=== PATIENT | female | born 1935 | race Caucasian/White ===

== ENCOUNTER 2017-09-10 13:40 | Inpatient (IN) | payer MEDICARE ==
[~2017-09-10] VITALS: Ht 152.4 cm; Wt 71.5 kg
[~2017-09-10 13:40] MED LIST: BUPR1PAT TOP; CITA40TA22 PO; CLOP75TA35 PO; DICY10CA88 PO; DIVA250T8 PO; GABA-347 PO; LAMO25TA94 PO; LISI-604 PO; NORCO10T PO; PANT-47 PO; RISP0.5T74 PO; SIMV20TA5 PO; atropine 0.1mg/ml 10ml syringe ONE
[2017-09-10 14:17] LABS: PROTHROMBIN TIME 10.3 SECONDS (9.0-12.0)
[2017-09-10 14:20] LABS: BASOPHILS # (AUTO) 0.1 X10'3 (0-0.2); BASOPHILS % (AUTO) 0.9 % (0-1); EOSINOPHILS # (AUTO) 0.1 X10'3 (0-0.9); EOSINOPHILS % (AUTO) 0.6 % (0-6); HEMOGLOBIN 9.6 g/dl (12.0-16.0); LYMPHOCYTES # (AUTO) 2.4 X10'3 (1.1-4.8); LYMPHOCYTES % (AUTO) 23.4 % (21-51); MEAN CORPUSCULAR HGB CONC 31.1 % (33.0-36.5); MEAN CORPUSCULAR VOLUME 67.6 FL (78-98); MEAN PLATELET VOLUME 7.5 FL (7.4-10.4); MONOCYTES # (AUTO) 0.5 X10'3 (0-0.9); MONOCYTES % (AUTO) 5.4 % (2-12); NEUTROPHILS % (AUTO) 69.7 % (42-75); PLATELET COUNT 292 X10'3 (140-440); RED BLOOD COUNT 4.58 X10'6 (4.20-5.60); RED CELL DISTRIBUTION WIDTH 18.1 % (11.5-14.5); WHITE BLOOD COUNT 10.1 X10'3 (4.5-11.0)
[2017-09-10 14:22] LABS: ALANINE AMINOTRANSFERASE 13 U/L (12-78); ALBUMIN 3.2 G/DL (3.4-5.0); ALBUMIN/GLOBULIN RATIO 0.7 (1.1-1.5); ALKALINE PHOSPHATASE 87 IU/L (46-116); ANION GAP 8 (8-16); ASPARTATE AMINO TRANSFERASE 11 U/L (10-37); BILIRUBIN,TOTAL 0.2 MG/DL (0.1-1.0); BLOOD UREA NITROGEN 34 MG/DL (7-18); CALCIUM 8.3 MG/DL (8.5-10.1); CHLORIDE 103 MMOL/L (99-107); CREATININE 1.26 MG/DL (0.40-0.90); GLUCOSE 115 MG/DL (70-104); POTASSIUM 5.1 MMOL/L (3.5-5.1); SODIUM 134 MMOL/L (135-145); TOTAL CARBON DIOXIDE 22.7 MMOL/L (24-32); TOTAL PROTEIN 7.5 G/DL (6.4-8.2); eGFR 41 ML/MIN
[2017-09-10] MEDS ORDERED: normal saline 1000ml 1,000 ML IV ONE ×2 (14:30→14:50)
[2017-09-10] MEDS ORDERED: BUSP10TA11 PO (14:34)
[2017-09-10] MEDS ORDERED: DOCU100C33 PO (14:34)
[2017-09-10] MEDS ORDERED: VERA180T PO (14:34)
[2017-09-10] MEDS ORDERED: TRAZ-218 PO (14:34)
[2017-09-10] MEDS ORDERED: atropine 1 MG/1 ML vial IV ONE (14:50)
[2017-09-10] MEDS ORDERED: DOPamine 400mg/D5W 250ml 250 ML IV SCH ×2 (14:50→15:06)
[2017-09-10 15:06] LABS: PLATELET ESTIMATE NORMAL
[2017-09-10 15:07] LABS: ANISOCYTOSIS 2+; HYPOCHROMASIA 2+; MICROCYTOSIS 2+; POLYCHROMASIA FEW
[2017-09-10] MEDS ORDERED: ondansetron/PF 4mg/2ml inj IV PRN ×2 (15:40→16:25)
[2017-09-10] MEDS ORDERED: ATEN-169 PO (15:56)
[2017-09-10] MEDS ORDERED: NITR0.4T51 SL (15:56)
[2017-09-10] MEDS ORDERED: magnesium 1gm/100ml D5W IVPB 100 ML IV PRN (16:25)
[2017-09-10] MEDS ORDERED: magnesium 4gm in 100ml NS 100 ML IV PRN (16:25)
[2017-09-10] MEDS ORDERED: potassium Cl 40MEQ/NS 500ml 500 ML IV PRN ×2 (16:25)
[2017-09-10] MEDS ORDERED: acetaminophen 325mg tablet PO PRN (16:25)
[2017-09-10] MEDS ORDERED: magnesium Cl slow-release 64mg tablet PO PRN (16:25)
[2017-09-10] MEDS ORDERED: mag hydrox/Alum hydrox/simeth 30ml oral suspension PO PRN (16:25)
[2017-09-10] MEDS ORDERED: magnesium hydroxide 30ml (MOM) UD suspension PO PRN (16:25)
[2017-09-10] MEDS ORDERED: potassium Cl 20 mEq SR tablet PO PRN ×2 (16:25)
[2017-09-10] MEDS: K and/or MAG REPLACEMENT MC SCH (16:25)
[2017-09-10] MEDS ORDERED: atropine 1 MG/1 ML vial IV PRN (16:30)
[2017-09-10] MEDS: normal saline 1000ml 1,000 ML IV SCH (17:15)
[2017-09-10] MEDS: DOPamine 400mg/D5W 250ml 250 ML IV SCH (17:36)
[2017-09-10 20:00] VITALS: BP 136/52
[2017-09-10] MEDS ORDERED: gabapentin 300mg capsule PO SCH (21:00)
[2017-09-10] MEDS: dicyclomine 10 MG capsule PO SCH (21:52)
[2017-09-10 22:00] VITALS: BP 120/44
[2017-09-11] VITALS (21 sets, daily range): BP systolic 78–184; BP diastolic 43–89
[2017-09-11] MEDS ORDERED: atropine 0.1mg/ml 10ml syringe ONE ×2 (01:38→07:05)
[2017-09-11] MEDS ORDERED: phentolamine (Regitine) 5mg inj IM PRN ×2 (03:15→03:28)
[2017-09-11] MEDS ORDERED: calcium chloride 100 MG/1 ML inj IV ONE (03:40)
[2017-09-11] MEDS ORDERED: HUMAN RECOMBINANT IV ONE ×2 (03:40)
[2017-09-11] MEDS ORDERED: NORMAL SALINE IV ONE ×2 (03:40)
[2017-09-11] MEDS ORDERED: GLUCAGON IV ONE ×2 (03:40)
[2017-09-11] MEDS ORDERED: glucagon, human recombinant 1mg kit IV ONE (03:55)
[2017-09-11 05:32] LABS: BASOPHILS # (AUTO) 0.1 X10'3 (0-0.2); BASOPHILS % (AUTO) 0.5 % (0-1); EOSINOPHILS # (AUTO) 0.2 X10'3 (0-0.9); EOSINOPHILS % (AUTO) 1.5 % (0-6); HEMATOCRIT 31.9 % (35.0-45.0); HEMOGLOBIN 9.6 g/dl (12.0-16.0); LYMPHOCYTES # (AUTO) 2.6 X10'3 (1.1-4.8); LYMPHOCYTES % (AUTO) 23.1 % (21-51); MEAN CORPUSCULAR HEMOGLOBIN 20.5 PG (27.0-31.0); MEAN CORPUSCULAR HGB CONC 30.2 % (33.0-36.5); MEAN CORPUSCULAR VOLUME 67.7 FL (78-98); MEAN PLATELET VOLUME 7.8 FL (7.4-10.4); MONOCYTES # (AUTO) 0.8 X10'3 (0-0.9); NEUTROPHILS # (AUTO) 7.6 X10'3 (1.8-7.7); NEUTROPHILS % (AUTO) 67.9 % (42-75); PLATELET COUNT 304 X10'3 (140-440); RED BLOOD COUNT 4.71 X10'6 (4.20-5.60); WHITE BLOOD COUNT 11.1 X10'3 (4.5-11.0)
[2017-09-11 05:42] LABS: ALANINE AMINOTRANSFERASE 29 U/L (12-78); ALBUMIN 3.2 G/DL (3.4-5.0); ALBUMIN/GLOBULIN RATIO 0.8 (1.1-1.5); ALKALINE PHOSPHATASE 95 IU/L (46-116); ANION GAP 8 (8-16); ASPARTATE AMINO TRANSFERASE 24 U/L (10-37); BILIRUBIN,TOTAL 0.2 MG/DL (0.1-1.0); BLOOD UREA NITROGEN 34 MG/DL (7-18); BUN/CREATININE RATIO 25.6 (6.6-38.0); CALCIUM 8.2 MG/DL (8.5-10.1); CHLORIDE 106 MMOL/L (99-107); CREATININE 1.33 MG/DL (0.40-0.90); GLUCOSE 103 MG/DL (70-104); POTASSIUM 5.2 MMOL/L (3.5-5.1); SODIUM 136 MMOL/L (135-145); TOTAL CARBON DIOXIDE 21.6 MMOL/L (24-32); TOTAL PROTEIN 7.4 G/DL (6.4-8.2); eGFR 38 ML/MIN
[2017-09-11 05:46] LABS: MAGNESIUM 2.2 MG/DL (1.5-2.4)
[2017-09-11 05:52] LABS: CLARITY,URINE CLOUDY (Clear); COLOR,URINE YELLOW (Yellow); GLUCOSE, URINE NEGATIVE (Neg); KETONES,URINE NEGATIVE (Neg); LEUKOCYTE ESTERASE ,URINE LARGE (Neg); NITRITES, URINE POSITIVE (Neg); OCCULT BLOOD,URINE MODERATE (Neg); PH,URINE 5.5 (4.8-8.0); PROTEIN,URINE TRACE mg/dl (Neg); UROBILINOGEN,URINE 0.2 E.U/dL (0.2-1.0)
[2017-09-11 05:55] LABS: UA COLLECTION TYPE CLN CATCH MIDSTREAM
[2017-09-11] MEDS ORDERED: fentaNYL/PF 50MCG/1 ML 2ML syringe ONE (06:12)
[2017-09-11] MEDS ORDERED: lidocaine 1%/epinephrine 1:100,000 injection 50ml vial ONE (06:12)
[2017-09-11 06:19] LABS: BACTERIA,URINE 4+ /HPF (Neg); WBC,URINE TNTC /HPF (0-4)
[2017-09-11 06:21] LABS: SQUAMOUS EPITHELIAL CELL,UR FEW /LPF (FEW)
[2017-09-11] MEDS: normal saline 1000ml 1,000 ML IV SCH ×2 (06:41→20:59)
[2017-09-11 07:01] LABS: PLATELET ESTIMATE NORMAL
[2017-09-11 07:02] LABS: ACANTHOCYTES FEW; ANISOCYTOSIS 2+; HYPOCHROMASIA 1+; MICROCYTOSIS 2+; POLYCHROMASIA FEW
[2017-09-11] MEDS ORDERED: ceFAZolin 1000mg inj ONE (07:06)
[2017-09-11] MEDS ORDERED: ceFAZolin 1GM/D5W- ADD-VANTAGE 50 ML IV ONE (07:06)
[2017-09-11] MEDS ORDERED: phentolamine (Regitine) 5mg inj SQ PRN (07:37)
[2017-09-11] MEDS: K and/or MAG REPLACEMENT MC SCH (08:00)
[2017-09-11] MEDS ORDERED: docusate sod 100mg capsule PO PRN (08:00)
[2017-09-11] MEDS: dicyclomine 10 MG capsule PO SCH ×3 (08:00→20:52)
[2017-09-11] MEDS ORDERED: vancomycin/NS 1 GM ADD-VANTAGE 250 ML X 1 DOSE IV ONE (08:20)
[2017-09-11] MEDS ORDERED: CEFEPIME 1 GM in NORMAL SALINE 100ml IV.SOLN IV SCH (08:30)
[2017-09-11] MEDS: HYDROcodone/acetaminophen 10/325mg tab PO PRN (10:09)
[2017-09-11] MEDS: pantoprazole 40mg Tablet.DR PO SCH (15:18)
[2017-09-11] MEDS: gabapentin 300mg capsule PO SCH ×2 (15:19→15:20)
[2017-09-11] MEDS: citalopram 20mg tablet PO SCH (15:22)
[2017-09-11] MEDS: lamoTRIgine 25mg tablet PO SCH (15:25)
[2017-09-11] MEDS: DOPamine 400mg/D5W 250ml 250 ML IV SCH (17:35)
[2017-09-11] MEDS: CEFEPIME 1 GM in NORMAL SALINE 100ml IV.SOLN IV SCH (20:00)
[2017-09-11] MEDS: NYSTATIN CREAM - 30GM TUBE TP SCH (20:00)
[2017-09-11] MEDS ORDERED: levoFLOXACIN 750MG TABLET PO ONE (20:25)
[2017-09-11] MEDS: nicotine 14mg patch - 24hr TD SCH (20:52)
[2017-09-11] MEDS: simethicone 80mg chew tab PO PRN (20:55)
[2017-09-12] VITALS (22 sets, daily range): BP systolic 109–191; BP diastolic 51–88
[2017-09-12] MEDS: HYDROcodone/acetaminophen 10/325mg tab PO PRN ×3 (00:03→19:52)
[2017-09-12] MEDS: simethicone 80mg chew tab PO PRN ×2 (03:53→07:24)
[2017-09-12 05:32] LABS: ALANINE AMINOTRANSFERASE 23 U/L (12-78); ALBUMIN/GLOBULIN RATIO 0.8 (1.1-1.5); ALKALINE PHOSPHATASE 83 IU/L (46-116); ANION GAP 9 (8-16); ASPARTATE AMINO TRANSFERASE 17 U/L (10-37); BILIRUBIN,TOTAL 0.3 MG/DL (0.1-1.0); BLOOD UREA NITROGEN 22 MG/DL (7-18); BUN/CREATININE RATIO 20.6 (6.6-38.0); CALCIUM 8.4 MG/DL (8.5-10.1); CHLORIDE 107 MMOL/L (99-107); CREATININE 1.07 MG/DL (0.40-0.90); GLUCOSE 80 MG/DL (70-104); MAGNESIUM 1.8 MG/DL (1.5-2.4); POTASSIUM 4.5 MMOL/L (3.5-5.1); SODIUM 140 MMOL/L (135-145); TOTAL CARBON DIOXIDE 24.5 MMOL/L (24-32); TOTAL PROTEIN 6.9 G/DL (6.4-8.2); eGFR 49 ML/MIN
[2017-09-12] MEDS: lamoTRIgine 25mg tablet PO SCH (07:12)
[2017-09-12] MEDS: gabapentin 300mg capsule PO SCH (07:12)
[2017-09-12] MEDS: pantoprazole 40mg Tablet.DR PO SCH (07:12)
[2017-09-12] MEDS: citalopram 20mg tablet PO SCH (07:13)
[2017-09-12] MEDS: dicyclomine 10 MG capsule PO SCH ×3 (07:13→19:53)
[2017-09-12] MEDS: nicotine 14mg patch - 24hr TD SCH (07:15)
[2017-09-12] MEDS: NYSTATIN CREAM - 30GM TUBE TP SCH ×2 (07:16→19:52)
[2017-09-12] MEDS: K and/or MAG REPLACEMENT MC SCH (08:00)
[2017-09-12 08:19] LABS: BASOPHILS % (AUTO) 0.2 % (0-1); EOSINOPHILS # (AUTO) 0.2 X10'3 (0-0.9); EOSINOPHILS % (AUTO) 2.6 % (0-6); HEMATOCRIT 27.5 % (35.0-45.0); HEMOGLOBIN 8.4 g/dl (12.0-16.0); LYMPHOCYTES # (AUTO) 1.2 X10'3 (1.1-4.8); LYMPHOCYTES % (AUTO) 19.6 % (21-51); MEAN CORPUSCULAR HEMOGLOBIN 20.4 PG (27.0-31.0); MEAN CORPUSCULAR HGB CONC 30.5 % (33.0-36.5); MEAN CORPUSCULAR VOLUME 67.2 FL (78-98); MEAN PLATELET VOLUME 7.6 FL (7.4-10.4); MONOCYTES # (AUTO) 0.5 X10'3 (0-0.9); MONOCYTES % (AUTO) 7.7 % (2-12); NEUTROPHILS # (AUTO) 4.2 X10'3 (1.8-7.7); NEUTROPHILS % (AUTO) 69.9 % (42-75); PLATELET COUNT 231 X10'3 (140-440); RED CELL DISTRIBUTION WIDTH 19.5 % (11.5-14.5)
[2017-09-12] MEDS: CEFEPIME 1 GM in NORMAL SALINE 100ml IV.SOLN IV SCH (09:50)
[2017-09-12 10:25] LABS: ANISOCYTOSIS 2+; MICROCYTOSIS 2+; PLATELET ESTIMATE NORMAL; POLYCHROMASIA FEW
[2017-09-12 10:26] LABS: ACANTHOCYTES FEW; HYPOCHROMASIA 1+
[2017-09-12] MEDS: normal saline 1000ml 1,000 ML IV SCH ×2 (11:17→22:43)
[2017-09-12] MEDS ORDERED: iohexol 350MG/ML 100ml bottle IV ONE (13:47)
[2017-09-12] MEDS ORDERED: nitroGLYCERIN-Tridil 50MG/D5W 250 ML IV ONE (13:47)
[2017-09-12] MEDS ORDERED: LIDOcaine 1% 30ml preserv. free vial ONE (13:47)
[2017-09-12] MEDS ORDERED: iohexol 350 MG/ML 50ML vial IV ONE (13:47)
[2017-09-12] MEDS ORDERED: heparin 1,000unit/ml 10ml vial 10 ML ONE (13:47)
[2017-09-12] MEDS ORDERED: diphenhydrAMINE 50 mg/ml inj ONE (14:39)
[2017-09-12] MEDS ORDERED: diltiazem 5mg/ml 5ml inj. IV ONE (14:58)
[2017-09-12] MEDS: DOPamine 400mg/D5W 250ml 250 ML IV SCH (19:00)
[2017-09-12] MEDS: levoFLOXACIN 250mg tablet PO SCH (19:52)
[2017-09-13] VITALS (16 sets, daily range): BP systolic 116–202; BP diastolic 45–89
[2017-09-13] MEDS: simethicone 80mg chew tab PO PRN ×2 (01:49→19:42)
[2017-09-13 05:03] LABS: BASOPHILS % (AUTO) 0.1 % (0-1); EOSINOPHILS # (AUTO) 0.2 X10'3 (0-0.9); HEMATOCRIT 26.7 % (35.0-45.0); HEMOGLOBIN 8.3 g/dl (12.0-16.0); LYMPHOCYTES # (AUTO) 1.1 X10'3 (1.1-4.8); LYMPHOCYTES % (AUTO) 12.7 % (21-51); MEAN CORPUSCULAR HEMOGLOBIN 20.4 PG (27.0-31.0); MEAN CORPUSCULAR HGB CONC 31.1 % (33.0-36.5); MEAN CORPUSCULAR VOLUME 65.8 FL (78-98); MEAN PLATELET VOLUME 7.8 FL (7.4-10.4); MONOCYTES # (AUTO) 0.6 X10'3 (0-0.9); MONOCYTES % (AUTO) 6.6 % (2-12); NEUTROPHILS # (AUTO) 6.7 X10'3 (1.8-7.7); NEUTROPHILS % (AUTO) 78.6 % (42-75); PLATELET COUNT 234 X10'3 (140-440); RED BLOOD COUNT 4.05 X10'6 (4.20-5.60); RED CELL DISTRIBUTION WIDTH 18.7 % (11.5-14.5); WHITE BLOOD COUNT 8.6 X10'3 (4.5-11.0)
[2017-09-13] MEDS ORDERED: hyDRALAzine 10mg tablet PO PRN (05:10)
[2017-09-13 05:47] LABS: ALANINE AMINOTRANSFERASE 19 U/L (12-78); ALBUMIN 3.1 G/DL (3.4-5.0); ALBUMIN/GLOBULIN RATIO 0.8 (1.1-1.5); ALKALINE PHOSPHATASE 89 IU/L (46-116); ANION GAP 8 (8-16); ASPARTATE AMINO TRANSFERASE 20 U/L (10-37); BILIRUBIN,TOTAL 0.3 MG/DL (0.1-1.0); BLOOD UREA NITROGEN 14 MG/DL (7-18); BUN/CREATININE RATIO 14.7 (6.6-38.0); CALCIUM 8.7 MG/DL (8.5-10.1); CHLORIDE 106 MMOL/L (99-107); CREATININE 0.95 MG/DL (0.40-0.90); GLUCOSE 105 MG/DL (70-104); MAGNESIUM 1.8 MG/DL (1.5-2.4); POTASSIUM 4.3 MMOL/L (3.5-5.1); SODIUM 140 MMOL/L (135-145); TOTAL CARBON DIOXIDE 26.2 MMOL/L (24-32); TOTAL PROTEIN 7.2 G/DL (6.4-8.2); eGFR 57 ML/MIN
[2017-09-13 07:22] LABS: ANISOCYTOSIS 2+; HYPOCHROMASIA 2+; MICROCYTOSIS 2+; PLATELET ESTIMATE NORMAL; POLYCHROMASIA 1+
[2017-09-13 07:26] LABS: POIKILOCYTOSIS 1+
[2017-09-13] MEDS: NYSTATIN CREAM - 30GM TUBE TP SCH ×2 (08:00→19:44)
[2017-09-13] MEDS: K and/or MAG REPLACEMENT MC SCH (08:00)
[2017-09-13] MEDS: nicotine 14mg patch - 24hr TD SCH (09:06)
[2017-09-13] MEDS: pantoprazole 40mg Tablet.DR PO SCH (09:06)
[2017-09-13] MEDS: gabapentin 300mg capsule PO SCH (09:07)
[2017-09-13] MEDS: levoFLOXACIN 250mg tablet PO SCH (09:07)
[2017-09-13] MEDS: citalopram 20mg tablet PO SCH (09:07)
[2017-09-13] MEDS: dicyclomine 10 MG capsule PO SCH ×3 (09:12→19:42)
[2017-09-13] MEDS: lamoTRIgine 25mg tablet PO SCH (09:13)
[2017-09-13] MEDS: lisinopril 5mg tablet PO SCH (10:13)
[2017-09-13] MEDS: carVEDilol 12.5mg tablet PO SCH ×2 (10:13→19:41)
[2017-09-13] MEDS: busPIRone 5mg tablet PO SCH ×2 (12:27→19:41)
[2017-09-13] MEDS: lactobacillus rhamnosus 10,000 MMU CELLS/CAPSULE PO SCH (19:42)
[2017-09-13] MEDS ORDERED: traZODone 50mg tablet PO SCH (20:00)
[2017-09-13] MEDS: HYDROcodone/acetaminophen 10/325mg tab PO PRN (20:16)
[2017-09-14 03:00] VITALS: BP 114/57
[2017-09-14 06:00] VITALS: BP 163/67
[2017-09-14 07:28] LABS: BASOPHILS % (AUTO) 0.2 % (0-1); EOSINOPHILS # (AUTO) 0.2 X10'3 (0-0.9); EOSINOPHILS % (AUTO) 3.1 % (0-6); HEMATOCRIT 27.4 % (35.0-45.0); HEMOGLOBIN 8.5 g/dl (12.0-16.0); LYMPHOCYTES # (AUTO) 1.2 X10'3 (1.1-4.8); LYMPHOCYTES % (AUTO) 15.5 % (21-51); MEAN CORPUSCULAR HEMOGLOBIN 20.5 PG (27.0-31.0); MEAN CORPUSCULAR HGB CONC 31.1 % (33.0-36.5); MEAN CORPUSCULAR VOLUME 65.8 FL (78-98); MEAN PLATELET VOLUME 7.3 FL (7.4-10.4); MONOCYTES # (AUTO) 0.5 X10'3 (0-0.9); MONOCYTES % (AUTO) 6.4 % (2-12); NEUTROPHILS % (AUTO) 74.8 % (42-75); PLATELET COUNT 238 X10'3 (140-440); RED BLOOD COUNT 4.17 X10'6 (4.20-5.60); RED CELL DISTRIBUTION WIDTH 19.7 % (11.5-14.5)
[2017-09-14 07:45] LABS: ALANINE AMINOTRANSFERASE 21 U/L (12-78); ALBUMIN 2.8 G/DL (3.4-5.0); ALBUMIN/GLOBULIN RATIO 0.7 (1.1-1.5); ALKALINE PHOSPHATASE 74 IU/L (46-116); ANION GAP 7 (8-16); ASPARTATE AMINO TRANSFERASE 15 U/L (10-37); BILIRUBIN,TOTAL 0.3 MG/DL (0.1-1.0); BLOOD UREA NITROGEN 13 MG/DL (7-18); BUN/CREATININE RATIO 17.1 (6.6-38.0); CALCIUM 8.4 MG/DL (8.5-10.1); CHLORIDE 107 MMOL/L (99-107); CREATININE 0.76 MG/DL (0.40-0.90); GLUCOSE 103 MG/DL (70-104); MAGNESIUM 1.8 MG/DL (1.5-2.4); POTASSIUM 3.7 MMOL/L (3.5-5.1); SODIUM 142 MMOL/L (135-145); TOTAL CARBON DIOXIDE 27.6 MMOL/L (24-32); TOTAL PROTEIN 6.8 G/DL (6.4-8.2); eGFR 73 ML/MIN
[2017-09-14] MEDS: K and/or MAG REPLACEMENT MC SCH (08:00)
[2017-09-14 08:01] LABS: ANISOCYTOSIS 2+; HYPOCHROMASIA 1+; MICROCYTOSIS 2+; PLATELET ESTIMATE NORMAL; POLYCHROMASIA FEW
[2017-09-14] MEDS: pantoprazole 40mg Tablet.DR PO SCH (08:52)
[2017-09-14] MEDS: busPIRone 5mg tablet PO SCH (08:53)
[2017-09-14] MEDS: nicotine 14mg patch - 24hr TD SCH (08:53)
[2017-09-14] MEDS: lactobacillus rhamnosus 10,000 MMU CELLS/CAPSULE PO SCH (08:53)
[2017-09-14] MEDS: gabapentin 300mg capsule PO SCH (08:54)
[2017-09-14] MEDS: levoFLOXACIN 250mg tablet PO SCH (08:54)
[2017-09-14] MEDS: carVEDilol 12.5mg tablet PO SCH (08:54)
[2017-09-14] MEDS: dicyclomine 10 MG capsule PO SCH (08:54)
[2017-09-14] MEDS: citalopram 20mg tablet PO SCH (08:54)
[2017-09-14] MEDS: HYDROcodone/acetaminophen 10/325mg tab PO PRN (08:54)
[2017-09-14] MEDS: lamoTRIgine 25mg tablet PO SCH (08:54)
[2017-09-14] MEDS: lisinopril 5mg tablet PO SCH (08:55)
[2017-09-14] MEDS: NYSTATIN CREAM - 30GM TUBE TP SCH (08:55)
[2017-09-14] MEDS ORDERED: CARV-50 PO (11:28)
[2017-09-14] MEDS ORDERED: NICO-631 TD (11:28)
== END 2017-09-14 14:00 | disposition home or self-care (01) | DRG 242 ==
LOC: ER 13:41 → ED HOLD 16:23 → PCU 3S 19:00 → CICU 2S 09-11 02:55 → ICU 2S 09-12 15:15 → PCU 3S 09-13 12:00
PROVIDERS: ADMIT Internal Medicine; ATTEND Internal Medicine Critical Care Medicine
PROC: 0JH606Z Insertion of Pacemaker, Dual Chamber into Chest Subcutaneous Tissue and Fascia, Open Approach (ICD-10-PCS; principal; 2017-09-11)
PROC: 02H63JZ Insertion of Pacemaker Lead into Right Atrium, Percutaneous Approach (ICD-10-PCS; 2017-09-11)
PROC: 02HK3JZ Insertion of Pacemaker Lead into Right Ventricle, Percutaneous Approach (ICD-10-PCS; 2017-09-11)
PROC: 4A023N7 Measurement of Cardiac Sampling and Pressure, Left Heart, Percutaneous Approach (ICD-10-PCS; 2017-09-12)
PROC: B2111ZZ Fluoroscopy of Multiple Coronary Arteries using Low Osmolar Contrast (ICD-10-PCS; 2017-09-12)
PROC: B2151ZZ Fluoroscopy of Left Heart using Low Osmolar Contrast (ICD-10-PCS; 2017-09-12)
DX: I49.5 Sick sinus syndrome (principal); G93.40 Encephalopathy, unspecified; N17.9 Acute kidney failure, unspecified; N39.0 Urinary tract infection, site not specified; E87.1 Hypo-osmolality and hyponatremia; M48.56XA Collapsed vertebra, not elsewhere classified, lumbar region, initial encounter for fracture; I50.32 Chronic diastolic (congestive) heart failure; R00.1 Bradycardia, unspecified; I95.9 Hypotension, unspecified; I25.10 Atherosclerotic heart disease of native coronary artery without angina pectoris; J44.9 Chronic obstructive pulmonary disease, unspecified; G62.9 Polyneuropathy, unspecified; R33.9 Retention of urine, unspecified; I11.0 Hypertensive heart disease with heart failure; K59.00 Constipation, unspecified; N28.1 Cyst of kidney, acquired; M85.80 Other specified disorders of bone density and structure, unspecified site; G89.4 Chronic pain syndrome; I07.1 Rheumatic tricuspid insufficiency; F41.9 Anxiety disorder, unspecified; F32.9 Major depressive disorder, single episode, unspecified; F03.90 Unspecified dementia, unspecified severity, without behavioral disturbance, psychotic disturbance, mood disturbance, and anxiety; F17.200 Nicotine dependence, unspecified, uncomplicated; E27.8 Other specified disorders of adrenal gland; E78.4 Other hyperlipidemia; Z90.710 Acquired absence of both cervix and uterus; Z90.49 Acquired absence of other specified parts of digestive tract; Z88.8 Allergy status to other drugs, medicaments and biological substances; Z79.02 Long term (current) use of antithrombotics/antiplatelets; Z79.899 Other long term (current) drug therapy; Z86.73 Personal history of transient ischemic attack (TIA), and cerebral infarction without residual deficits
CPT/HCPCS: 33208; 36415; 70450; 71045; 71046; 74176; 80053; 81001; 83605; 83735; 83880; 84484; 85025; 85610; 87040; 87070; 87077; 87088; 87186; 93005; 93306; 93458; 94760; 96365; 96375; 97116; 97162; 99152; 99153; 99285; A4315; A4353; A4565; A4620; A6209; A6213; A6257; A6449; C1760; C1769; C1785; C1894; C1898; J0461; J0690; J0692; J1200; J1265; J1610; J1644; J2760; J3010; J3370; J3490; J7030; Q9967

== ENCOUNTER 2021-10-29 12:57 | Emergency (ER) | payer MEDICARE ==
[~2021-10-29] VITALS: Ht 157.5 cm; Wt 55.9 kg
[~2021-10-29 12:57] MED LIST changes: +BUSP10TA11 PO; +CARV-50 PO; +CLOP75TA34 PO; -CLOP75TA35 PO; -DIVA250T8 PO; +DOCU100C33 PO; -LISI-604 PO; +LISI5TAB22 PO; +NICO-631 TD; +NITR0.4T51 SL; -RISP0.5T74 PO; -SIMV20TA5 PO; +TRAZ-251 PO; -atropine 0.1mg/ml 10ml syringe ONE
[2021-10-29 12:58] VITALS: BP 136/48
--- NOTE | 2021-10-29 14:30 | NUR ---
Patient was seen and assessed by provider.
== END 2021-10-29 16:15 | disposition home or self-care (01) ==
LOC: ER 12:57
DX: Z13.89 Encounter for screening for other disorder (principal); F41.9 Anxiety disorder, unspecified; I11.0 Hypertensive heart disease with heart failure; I50.9 Heart failure, unspecified; J44.9 Chronic obstructive pulmonary disease, unspecified; F32.A Depression, unspecified; Z86.73 Personal history of transient ischemic attack (TIA), and cerebral infarction without residual deficits; Z87.440 Personal history of urinary (tract) infections; Z90.89 Acquired absence of other organs; Z90.49 Acquired absence of other specified parts of digestive tract; Z90.710 Acquired absence of both cervix and uterus; Z72.89 Other problems related to lifestyle; Z88.8 Allergy status to other drugs, medicaments and biological substances; Z79.899 Other long term (current) drug therapy
CPT/HCPCS: 99283

== ENCOUNTER 2022-01-27 13:10 | Emergency (ER) | payer MEDICARE ==
[~2022-01-27] VITALS: Ht 157.5 cm; Wt 54.5 kg
[2022-01-27 14:32] LABS: BASOPHILS % (AUTO) 0.3 % (0-1); EOSINOPHILS % (AUTO) 0.3 % (0-6); HEMOGLOBIN 15.3 g/dl (12.0-16.0); LYMPHOCYTES # (AUTO) 1.6 X10'3 (1.1-4.8); LYMPHOCYTES % (AUTO) 19.4 % (21-51); MEAN CORPUSCULAR HEMOGLOBIN 33.8 PG (27.0-31.0); MEAN CORPUSCULAR HGB CONC 33.2 g/dL (33.0-36.5); MEAN CORPUSCULAR VOLUME 101.8 FL (78-98); MONOCYTES # (AUTO) 0.6 X10'3 (0-0.9); MONOCYTES % (AUTO) 7.4 % (2-12); NEUTROPHILS # (AUTO) 6.1 X10'3 (1.8-7.7); NEUTROPHILS % (AUTO) 72.6 % (42-75); PLATELET COUNT 304 X10'3 (140-440); RED BLOOD COUNT 4.51 X10'6 (4.20-5.60); WHITE BLOOD COUNT 8.4 X10'3 (4.5-11.0)
[2022-01-27 14:52] LABS: ALANINE AMINOTRANSFERASE 33 U/L (12-78); ALBUMIN 3.4 G/DL (3.4-5.0); ALBUMIN/GLOBULIN RATIO 0.8 (1.1-1.5); ALKALINE PHOSPHATASE 85 IU/L (46-116); ANION GAP 13 (8-16); ASPARTATE AMINO TRANSFERASE 33 U/L (10-37); BILIRUBIN,TOTAL 0.5 MG/DL (0.1-1.0); BLOOD UREA NITROGEN 24 MG/DL (7-18); BUN/CREATININE RATIO 28.9 (6.6-38.0); CALCIUM 9.3 MG/DL (8.5-10.1); CHLORIDE 105 MMOL/L (99-107); CREATININE 0.83 MG/DL (0.40-0.90); GLUCOSE 116 MG/DL (70-104); SODIUM 139 MMOL/L (135-145); TOTAL PROTEIN 7.8 G/DL (6.4-8.2); eGFR 65 ML/MIN
[2022-01-27 14:53] LABS: ETHANOL < 0.010 GM/DL (0.0-0.010)
[2022-01-27 15:02] LABS: CLARITY,URINE CLOUDY (Clear); COLOR,URINE YELLOW (Yellow); GLUCOSE, URINE NEGATIVE (Neg); KETONES,URINE NEGATIVE (Neg); LEUKOCYTE ESTERASE ,URINE MODERATE (Neg); NITRITES, URINE POSITIVE (Neg); OCCULT BLOOD,URINE TRACE-INTACT (Neg); PH,URINE 5.5 (4.8-8.0); PROTEIN,URINE TRACE mg/dl (Neg); UA COLLECTION TYPE CLN CATCH MIDSTREAM; UROBILINOGEN,URINE 0.2 E.U/dL (0.2-1.0)
[2022-01-27 15:07] LABS: BACTERIA,URINE 4+ /HPF (Neg); MUCUS STRANDS NONE SEEN /LPF (Neg); RBC,URINE 0-2 /HPF (0-2); SQUAMOUS EPITHELIAL CELL,UR FEW /LPF (FEW); WBC CLUMPS,URINE FEW /HPF (NEGATIVE); WBC,URINE TNTC /HPF (0-4)
[2022-01-27] MEDS ORDERED: FOSFOMYCIN TROMETHAMINE 3 GM PACKET PO ONE (15:10)
[2022-01-27 15:18] LABS: URINE AMPHETAMINE SCREEN NEGATIVE (Neg); URINE BARBITUATE SCREEN NEGATIVE (Neg); URINE BENZODIAZEPINES SCREEN NEGATIVE (Neg); URINE CANNABINOID SCREEN NEGATIVE (Neg); URINE COCAINE SCREEN NEGATIVE (Neg); URINE METHADONE SCREEN NEGATIVE (Neg); URINE OPIATE SCREEN NEGATIVE (Neg); URINE PHENCYCLIDINE SCREEN NEGATIVE (Neg)
--- NOTE | 2022-01-27 18:52 | NUR ---
spoke with radha Rojas Bull [phone] at bedside with [facility]. Mrs. Menard on mental health hold to re evluate in the am with [facility] and food services coordinator. Mr. Rojas states he is capable to provide 24hr supervision of his grandmother. Mr Rojas needs documentaion of being care provider to supply grandmothers longterm residents as she lives in a 55yo and over facility.
[2022-01-27] MEDS ORDERED: acetaminophen 325mg tablet PO ONE (19:50)
[2022-01-27] MEDS ORDERED: FAMO40TA59 PO (20:35)
[2022-01-27] MEDS ORDERED: AMLO10TA48 PO (20:35)
[2022-01-27] MEDS ORDERED: LISI20TA28 PO (20:35)
[2022-01-27] MEDS ORDERED: ANAS1TAB10 PO (20:35)
[2022-01-27] MEDS ORDERED: NICO-630 TOP (20:40)
[2022-01-27] MEDS ORDERED: DICY10CA88 PO (20:40)
[2022-01-27] MEDS: Melatonin 3mg tablet PO SCH (20:55)
[2022-01-27] MEDS ORDERED: quetiapine 100mg tablet PO ONE (23:50)
[2022-01-28] MEDS ORDERED: nitroGLYCERIN 0.4mg SUBLingual tab SL PRN (00:05)
[2022-01-28] MEDS ORDERED: busPIRone 15mg tablet PO PRN (00:05)
[2022-01-28] MEDS ORDERED: Buprenorphine (Butrans) 1 PATCH TP SCH (06:30)
--- NOTE | 2022-01-28 07:33 | NUR ---
report from ramonita valiente for continuation of care. pt is confused and restless. pt dressed in green scrubs with sitter at bedside for constant observation and safety. pt will not answer questions at this time.
[2022-01-28] MEDS: lamoTRIgine 25mg tablet PO SCH (08:00)
[2022-01-28] MEDS: lisinopril 20mg tablet PO SCH (08:00)
[2022-01-28] MEDS: anastrozole 1 MG tablet PO SCH (08:00)
[2022-01-28] MEDS: amLODIPine 5mg tablet PO SCH (08:00)
[2022-01-28] MEDS: gabapentin 300mg capsule PO SCH ×3 (08:00→21:15)
[2022-01-28] MEDS: famotidine 20mg tablet PO SCH (08:00)
[2022-01-28] MEDS: dicyclomine 10 MG capsule PO SCH ×3 (08:00→21:15)
--- NOTE | 2022-01-28 09:53 | NUR ---
pt unable to take oral meds at this time. pt nicotine patch was administerd on rt shoulder, pt is restless confused and uncooperative. pt was given breakfast tray and showed no intrest in food at this time. MD aware no new orders.
[2022-01-28] MEDS: nicotine 7mg patch - 24hr TD SCH ×2 (11:30)
--- NOTE | 2022-01-28 13:35 | NUR ---
pt was able to eat lunch tray with assistance from sitter. pt remains calm cooperative and laying in position of comfort. NAD
[2022-01-28] MEDS ORDERED: acetaminophen 325mg tablet PO ONE (14:35)
[2022-01-28] MEDS: QUEtiapine 25mg tablet PO SCH ×2 (14:58→21:00)
--- NOTE | 2022-01-28 17:01 | NUR ---
PT SLEEPING IN POSITION OF COMFORT WITH FAMILY AT BEDSIDE.
[2022-01-28] MEDS: Melatonin 3mg tablet PO SCH ×2 (21:00→21:15)
[2022-01-28] MEDS ORDERED: quetiapine 100mg tablet PO SCH (21:00)
[2022-01-29 05:20] VITALS: BP 119/64
--- NOTE | 2022-01-29 06:38 | NUR ---
Patient sitting in recliner by the nurses station. Patient is pleasant and in no distress. Continue to monitor.
[2022-01-29] MEDS: anastrozole 1 MG tablet PO SCH (08:00)
[2022-01-29] MEDS: lisinopril 20mg tablet PO SCH (08:00)
[2022-01-29] MEDS: amLODIPine 5mg tablet PO SCH (08:00)
[2022-01-29] MEDS: famotidine 20mg tablet PO SCH (08:45)
[2022-01-29] MEDS: gabapentin 300mg capsule PO SCH (08:45)
[2022-01-29] MEDS: dicyclomine 10 MG capsule PO SCH (08:47)
[2022-01-29] MEDS: lamoTRIgine 25mg tablet PO SCH (08:47)
[2022-01-29] MEDS: nicotine 7mg patch - 24hr TD SCH (08:48)
[2022-01-29] MEDS ORDERED: CEPH500C2 PO (11:28)
== END 2022-01-29 12:57 | disposition home or self-care (01) ==
LOC: ER 13:10
DX: F01.50 Vascular dementia, unspecified severity, without behavioral disturbance, psychotic disturbance, mood disturbance, and anxiety (principal); N39.0 Urinary tract infection, site not specified; I11.9 Hypertensive heart disease without heart failure; J44.9 Chronic obstructive pulmonary disease, unspecified; Z90.49 Acquired absence of other specified parts of digestive tract; Z98.890 Other specified postprocedural states
CPT/HCPCS: 36415; 72170; 80053; 80305; 80320; 81001; 84443; 85025; 99285